=== PATIENT | male | born 1980 | race Caucasian/White ===

== ENCOUNTER 2022-02-19 08:13 | Day surgery (SDC) | payer OTHER ==
[~2022-02-19] VITALS: Ht 188 cm; Wt 90.3 kg
[2022-02-19] MEDS ORDERED: CEPHALEXIN500 M1 PO (08:44)
[2022-02-19] MEDS ORDERED: XANAX 0.5MG0.5 MG PO (08:44)
[2022-02-19 09:02] VITALS: BP 134/72; PULSE 77; TEMP 98.1
[2022-02-19] MEDS ORDERED: NORCO 325 MG-51 TAB PO (11:32)
--- NOTE | 2022-02-19 12:00 | NUR ---
1205: Patient arrived back from PACU. Report received from MARY Vogel. Patient alert and awake. Patient requesting grape juice and blueberry muffin. 1230: Patient tolerated food and drink well. States he would like to have pain medication prior to getting up and using restroom. PRN norco given per DEC. 1250: Patient states he would like to use restroom. Up to bathroom independently. Told patient if he is able to void, he can get dressed. 1310: Went through discharge instructions with patient. Questions answered. Patient verbalized understanding to education. IV removed without complications. Patient then escorted to patient entrance via wheelchair and left in the care of his friend, Zaina.
[2022-02-19 12:05] VITALS: BP 122/88; PULSE 75; TEMP 97.7
[2022-02-19 12:20] VITALS: BP 119/76; PULSE 67
[2022-02-19 12:35] VITALS: BP 132/87; PULSE 67
[2022-02-19 16:00] VITALS: BP 117/82; PULSE 77; TEMP 97.2
[2022-02-23] MEDS ORDERED: NORCO 325 MG-51 TAB PO (08:10)
== END 2022-02-19 14:10 | disposition home or self-care (01) ==
LOC: SDCO 08:13
DX: K40.90 Unilateral inguinal hernia, without obstruction or gangrene, not specified as recurrent (principal)
CPT/HCPCS: C1781; J0690; J1100; J1885; J2405; J2704; J2710; J3010; J7120